=== PATIENT | male | born 1995 | race Caucasian/White ===

== ENCOUNTER 2019-05-02 12:21 | Emergency (ER) | payer SELFPAY | END 2019-05-02 14:58 | disposition home or self-care (01) | LOC: E/R 14:58 | DX: S89.91XA Unspecified injury of right lower leg, initial encounter (principal); X58.XXXA Exposure to other specified factors, initial encounter; Y92.310 Basketball court as the place of occurrence of the external cause | CPT/HCPCS: 73562; 99283-25 ==